=== PATIENT | male | born 1955 | race Caucasian/White ===

== ENCOUNTER 2024-04-29 09:05 | Day surgery (SDC) | payer MEDICARE, BC, SELFPAY ==
[2024-04-20 14:20] VITALS: BMI 31.8
[2024-04-29 09:32] VITALS: BP 144/87; PULSE 96; RESP 18; TEMP 36.2; O2SAT 98
--- NOTE | 2024-04-29 09:44 | EXP.ANES.CKL ---
[facility] Disclaimer: The information contained in this section may have been updated after the patient was seen, as this information can be updated by other users. Medical History History of transient ischemic attack (TIA) Irritable bowel syndrome (IBS) Crohn's disease Atrial fibrillation Surgical History History of surgery History of surgery History of hip replacement Family History Sister Breast cancer Ovarian cancer Social History Smoking Status: Never smoker alcohol intake: never substance use type: denies use current occupational status: retired Travel in the last 8 weeks: Inside the [facility] Anesthesia Checklist Patient Identification Patient Identification: Arm Band and Verbal (Name & ) Structural Data Admitted From: Home Planned Operative Procedure/s: Colonoscopy Consent for Planned Operative Procedure(s) Verified: Yes Verified Documents: Surgical Consent and History and Physical NPO Status Verified Time NPO: 00:00 Additional verifications Anesthesia Reactions: No Airway Assessment Mallampati Score:: Class II C-Spine Mobility Assessed: Yes TMJ Mobility Assessed: Yes Dentition: Good Dentition Neurological Assessment Level of Consciousness: Awake Hx Seizures: No Numbness or tingling in extremities: No Anesthesia Plan Anesthesia Risk discussed: Yes Anesthesia Plan: Verified ASA Class: III Anesthesia Type: MAC
[2024-04-29 10:10] VITALS: O2SAT 98
--- NOTE | 2024-04-29 10:28 | P.HP_ITS ---
History of Present Illness *Admission Date: 04/29/24 *Reason for visit:: Screening *History of present illness: Mr. Pressley is a 69-year-old gentleman who is here for screening colonoscopy. He does have a prior history of Crohn's disease of the terminal ileum. The examination is deemed medically necessary for colonoscopy. The patient has been seen, interviewed and examined prior to the procedure by both myself and the anesthesia provider. [facility] Disclaimer: The information contained in this section may have been updated after the patient was seen, as this information can be updated by other users. Medical History History of transient ischemic attack (TIA) Irritable bowel syndrome (IBS) Crohn's disease Atrial fibrillation Surgical History History of surgery History of surgery History of hip replacement Family History Sister Breast cancer Ovarian cancer Social History (Updated 04/29/24 @ 09:46 by Wong Agustin CRNA) Smoking Status: Never smoker alcohol intake: never substance use type: denies use current occupational status: retired Travel in the last 8 weeks: Inside the [place] Review of Systems Review of Systems Review of systems (narrative): Negative *Cardiovascular Comments: Negative *Gastrointestinal Comments: Negative *Genitourinary Comments: Negative *Musculoskeletal Comments: Negative *Neurologic Comments: Negative Meds Home Medications and Allergies Home Medications ?Medication ?Instructions ?Recorded ?Confirmed ?Type aspirin 81 mg capsule 81 mg PO DAILY 04/20/24 04/20/24 History famotidine 20 mg tablet (Pepcid) 20 mg PO DAILY 04/20/24 04/20/24 History metoprolol tartrate 50 mg tablet 50 mg PO DAILY 04/20/24 04/20/24 History potassium chloride 10 mEq 10 meq PO DAILY 04/20/24 04/20/24 History tablet,extended release rivaroxaban 20 mg tablet (Xarelto) 20 mg PO DAILY 04/20/24 04/29/24 History trospium 20 mg tablet 20 mg PO BID 04/20/24 04/20/24 History rosuvastatin 20 mg tablet 20 mg PO DAILY 04/29/24 04/29/24 History New Prescriptions to Start Prescriptions: Allergies Allergy/AdvReac Type Severity Reaction Status Date / Time amoxicillin Allergy Unknown Verified 04/20/24 13:54 allergy reaction clavulanic acid Allergy Unknown Verified 04/20/24 13:54 [From Augmentin] allergy reaction doxycycline Allergy Nausea Verified 04/20/24 13:54 Exam Data for Last 24 hours Vital signs and Labs for Last 24 Hours: Temp Pulse Resp BP Pulse Ox O2 Del Method O2 Flow Rate 97.1 F L 96 H 18 144/87 H 98 Nasal Cannula 6 04/29/24 09:32 04/29/24 09:32 04/29/24 09:32 04/29/24 09:32 04/29/24 09:32 04/29/24 10:10 04/29/24 10:10 *Routine HEENT Exam Head: Present normocephalic Eye: Present EOMI and PERRL ENT: Present mucous membranes moist *Routine Neck Exam Neck: Present supple *Routine Respiratory Exam Respiratory: Present CTA bilaterally *Routine Cardiovascular Exam Cardiovascular: Present RRR *Routine Abdominal Exam Abdominal: Present soft and normoactive bowel sounds; Absent tenderness *Routine Rectal Exam Rectal:: deferred *Routine Genitalia Exam Genitalia:: deferred *Routine Extremities Exam Extremities: Absent cyanosis, clubbing or edema *Routine Skin Exam Skin: Present warm; Absent rash *Routine Neurological Exam Neurological: Present alert and oriented X3 Assessment and Plan *Assessment and plan (1) Crohn's disease of small intestine in remission: Status: Acute Category: Medical Code(s): K50.00 - Crohn's disease of small intestine without complications (2) Screening for colon cancer: Status: Acute Category: Medical Code(s): Z12.11 - Encounter for screening for malignant neoplasm of colon Plan A/P: 1. Longstanding Crohn's disease of the ileum is the preprocedural diagnosis. The patient will be anesthetized/sedated using MAC sedation. The patient has been seen and examined. Cardiac and lung assessment prior to the examination is stable. Proceed with planned colonoscopy
[2024-04-29 10:49] VITALS: BP 86/49; PULSE 67; RESP 18; TEMP 36.3; O2SAT 94
--- NOTE | 2024-04-29 10:49 | HMH.PROCNOTE ---
[facility] Procedure Note Date: 04/29/24 Time: 10:49 Procedure Note:: Colonoscopy Procedure Report: Colonoscopy with cold biopsies and cold snare polypectomy Endoscopist: Velasquez Hollis II, MD Referring physician: Jagjit Jones MD Date of Procedure: April 29, 2024 Equipment: Olympus 190 variable stiffness pediatric colonoscope Sedation: MAC sedation Indication: Mr. Pressley is a 69-year-old gentleman with longstanding Crohn's disease of the small intestine. He was not on any maintenance of remission therapy for many years and is now on Entyvio. He is doing well with no complaints. He has had recent labs at [facility] which are not presently available. He reports no abdominal pain, weight loss, change in his bowel habits or rectal bleeding. He reports no family history of colon cancer. Procedure: Prior to the procedure, a history and physical exam was performed, and patient's medications and allergies were reviewed. The risks, benefits and alternatives of the sedation and procedure were discussed with the patient. All questions were answered and informed consent was obtained. The patient was brought to the procedure room. Patient identification and proposed procedure were verified by the physician and the nurse. The patient was placed in a left lateral decubitus position and the scope was passed under direct vision. Throughout the procedure, the patient's blood pressure, pulse, and oxygen saturations were monitored continuously. The colonoscopy was accomplished without difficulty. The patient tolerated the procedure well. Findings: On digital rectal examination there was normal rectal tone. There were no external hemorrhoids. The prostate was 2+, smooth, soft, symmetric without nodules. The colonoscope was introduced through the anal canal to the rectum and advanced to the cecum. The ileocecal valve and appendiceal orifice were identified. The scope was advanced approximately 15 to 20 cm into the ileum. There were scattered aphthous ulcerations and aphthous erosions. There was no stricturing or fistulizing disease identified but there was mild mucosal patchy edema/erythema and aphthous ulceration/erosions. Multiple biopsies were obtained. This extended to beyond 15 cm and was certainly more proximal in the ileum as well. The scope was then withdrawn into the colon. There was a single 5 mm polyp in the descending colon removed via cold snare polypectomy. The remainder of the cecum, ascending, transverse, descending, sigmoid and rectum were grossly normal. There were no mucosal abnormalities identified. Upon retroflexion within the rectum there were grade 1-2 internal hemorrhoids.The preparation was excellent throughout with [place] Preparation Score of 9. The cecal time was 10 minutes. Impression: 1. Crohn's ileitis extending to at least 15 cm in ileum (Crohn's disease of the small intestine without obstruction) 2. Diminutive descending colon polyp 3. Grade 1-2 internal hemorrhoids Plan: I will discuss the findings with the patient and family. He has clinically improved with Entyvio but is not in colonoscopic remission. We will decide whether additional or new treatment is warranted and discuss treatment options. I would like to review labs and have the patient follow-up in the office.
[2024-04-29 10:59] VITALS: BP 104/73; PULSE 83; RESP 18; O2SAT 95
[2024-04-29 11:09] VITALS: BP 111/61; PULSE 74; RESP 18; O2SAT 95
[2024-04-29 11:40] VITALS: BP 112/69; PULSE 79; RESP 18; O2SAT 98
== END 2024-04-29 11:40 | disposition home or self-care (01) ==
PROVIDERS: PCP Family Medicine; Visit Provider Internal Medicine Gastroenterology
PROC: (CPT 45385; principal; 2024-04-29 11:00)
DX: K50.00 Crohn's disease of small intestine without complications (principal); D12.4 Benign neoplasm of descending colon; K64.1 Second degree hemorrhoids; Z79.899 Other long term (current) drug therapy
CPT/HCPCS: 45385; 88305; 99221

== ENCOUNTER 2024-07-06 11:39 | Outpatient (CLI) | payer MEDICARE, BC, SELFPAY ==
[2024-07-06 12:37] LABS: Basophils # 0.1 K/mm3 (0-0.2); Basophils % 0.7 % (0.1-2.0); Eosinophils # 0.1 K/mm3 (0.0-0.4); Eosinophils % 0.8 % (0.1-12.0); Hematocrit 40.2 % (42.0-52.0); Hemoglobin 13.4 g/dL (14.1-18.0); Lymphocytes # 2.1 K/mm3 (0.7-4.5); Mean Corpuscular HGB Conc 33.2 g/dL (31.8-35.4); Mean Corpuscular Hemoglobin 29.2 pg (27.0-31.2); Mean Platelet Volume 7.5 fl (7.4-10.4); Monocytes # 0.5 K/mm3 (0.1-1.0); Neutrophils # 4.8 K/mm3 (1.8-7.8); Neutrophils % 63.4 % (37.0-80.0); Platelet Count 287 K/mm3 (142-424); Red Blood Count 4.57 M/mm3 (4.60-6.20); Red Cell Distribution Width 14.6 % (11.5-17.5); White Blood Count 7.6 K/mm3 (4.8-10.8)
[2024-07-06 12:59] LABS: Alanine Aminotransferase 28 U/L (12-78); Albumin/Globulin Ratio 1.6 (1.1-1.8); Alkaline Phosphatase 77 U/L (38-126); Anion Gap 10.4 mEq/L (5-15); Aspartate Amino Transferase 35 U/L (17-59); Bilirubin,Total 0.4 mg/dl (0.2-1.3); Blood Urea Nitrogen 16 mg/dl (9-20); Calcium 9.1 mg/dl (8.4-10.2); Carbon Dioxide 28 mmol/L (22.0-30.0); Chloride 108 mmol/L (98-107); Estimated Glomerular Filt Rate 84 ml/min (>60); GFR (African American) 102 ML/MIN (>60); Globulin 2.5 g/dL (1.3-3.2); Glucose 87 mg/dl (74-100); Potassium 4.4 mmoL/L (3.5-5.1); Sodium 142 mmol/L (136-145); Total Protein,Serum 6.5 g/dl (6.3-8.2)
[2024-07-06 13:05] LABS: C-Reactive Protein 1.8 mg/L (0-4)
[2024-07-06 14:42] LABS: Vitamin B12 > 1000 pg/mL (239-931)
[2024-07-06 16:25] LABS: Iron 56 ug/dL (49-181)
[2024-07-06 16:35] LABS: Total Iron Binding Capacity 431 ug/dL (261-462)
[2024-07-06 17:04] LABS: Ferritin 11.7 ng/ml (17.9-464)
[2024-07-18 20:25] LABS: 1,25 Dihydroxy Vitamin D 58 pg/mL (.); 1,25-Dihydroxy, Vitamin D-2 <10 pg/mL (.); 1,25-Dihydroxy, Vitamin D-3 57 pg/mL (.)
== END 2024-07-06 23:59 | disposition home or self-care (01) ==
LOC: LAB 11:40
PROVIDERS: PCP Family Medicine; Visit Provider Internal Medicine Gastroenterology
DX: K74.69 Other cirrhosis of liver (principal); B19.20 Unspecified viral hepatitis C without hepatic coma; K50.00 Crohn's disease of small intestine without complications
CPT/HCPCS: 36415; 80053; 82607; 82652; 82728; 83540; 83550; 85025; 86140

== ENCOUNTER 2025-04-26 10:54 | Outpatient (CLI) | payer MEDICARE, BC, SELFPAY ==
--- OUTSIDE RECORDS SUMMARY | 2025-03-24 09:30 | XMS_ITS | Encounter Summary ---
Author Organization Healthcare Address [address] [place] [address] Care Team Providers Care Business Banking Officer Name Role Phone Mp Ibarra Primary Care Provider [phone] Reason for Referral * Consultation (Routine) - Authorized Specialty Diagnoses / Procedures Referred By Villa t Referred To Contact Sleep Medicine Diagnoses Nocturia Jinny Hagen APRN, DNP [address] [address] Phone: tel: fax: [facility] [address] [place] [address] Phone: tel: fax: Referral ID Status Reason Start Date Expiration Date Visits Requested Visits Authorized [id number] Authorized Specialty Services Required 03/24/2025 09/23/2026 1 1 Reason for Visit * Reason Comments LUTS Encounter Details Date Type Department Care Team (Late st Contact Info) Description 03/24/2025 9:30 AM EDT [facility] [address] [place] [address] Jinny Hagen APRN, DNP [id number] [place] [address] Lower urinary tract symptoms (LUTS) (Primary Dx); Nocturia Social History Tobacco Use Types Packs/Day Years Used Date Smoking Tobacco: Never Passive Smoke Exposure: Never Smokeless Tobacco: Never Alcohol Use Standard Drinks/Week Comments Never 0 (1 standard drink = 0.6 oz pur e alcohol) PHQ-2 Answer Date Recorded Patient Health Questionnaire-2 Score 0 03/24/2025 PHQ-9 Answer Date Recorded Patient Health Questionnaire-9 Score 0 03/24/2025 PHQ-2A Answer Date Recorded Patient Health Questionnaire-2 Score 0 06/18/2023 Sex and Gender Information Value Date Recorded Sex Assigned at Not on file Legal Sex Male 8:23 PM EDT Gender Identity Not on file Sexual Orientation Not on file documented as of this encounter Last Filed Vital Signs Vital Sign Reading Time Taken Comments Blood Pressure 98/61 03/24/2025 8:24 AM EDT Pulse 64 03/24/2025 8:24 AM EDT Temperature 36.7 C (98 F) 03/24/2025 8:24 AM EDT Respiratory Rate 18 03/24/2025 8:24 AM EDT Oxygen Saturation 97% 03/24/2025 8:24 AM EDT Inhaled Oxygen Concentration - - Weight 93.8 kg (206 lb 12.7 oz) 03/24/2025 8:24 AM EDT Height 182.9 cm (6') 03/24/2025 8:24 AM EDT Body Mass Index 28.05 03/24/2025 8:24 AM EDT documented in this encounter Functional Status * Over the past 2 weeks, how often have you been bothered by any of the following problems? Question Answer Date of Assessment Author Little interest or pleasure in doing things Not at all 03/24/2025 8:20 AM CARLOT Reilly Multani Feeling down, depressed, or hopeless Not at all 03/24/2025 8:20 AM CARLOT Reilly Multani Patient Health Questionnaire -2 Score 0 03/24/2025 8:20 AM CARLOT Reilly Multani * Question Answer Date of Assessment Author Trouble falling or staying asleep, or sleeping too much Not at all 03/24/2025 8:20 AM CARLOT Reilly Multani Feeling tired or having desiree le energy Not at all 03/24/2025 8:20 AM Reilly Davison Poor appetite or overeating Not at all 03/24/2025 8: 20 AM Reilly Davison Feeling bad about yourself - or that you are a failure or have let yourself or your family down Not at all 03/24/2025 8:20 AM Reilly Franks Trouble concentrating on thi ngs, such as reading the newspaper or watching television Not at all 03/24/2025 8:20 AM Reilly Davison Moving or speaking so slowly that other people could have noticed? Or the opposite - being so fidgety or restless that you have been moving around a lot more than usual. Not at all 03/24/2025 8:20 AM Reilly Davison Thoughts that you would be b canelo off or hurting yourself in some way Not at all 03/24/2025 8:20 AM Reilly Davison Patient Health Questionnaire -9 Score 0 03/24/2025 8:20 AM Reilly Davison documented as of this encounter Miscellaneous Notes * Progress Notes - Jinny Hagen, RADIO REPAIRER, DNP - 03/24/2025 9:30 AM EDT [facility] Visit CC: LUTS HPI: Aneesh Pressley is a 69 y.o. male with history of left ureteral stone s/p ureteroscopy (2019), stable 6 mm left renal nodule, and bothersome LUTS. He has previously sed tamsulosin and finasteride for his LUTS. More recently, he has been using trospium 20 mg BID. Aneesh presents today in follow up. He is most bothered by nocturia. He stops fluids around 7 pm with bedtime around 9-10 pm. Drinking sweet tea, soda, water throughout the day. He has never been evaluated for sleep apnea. Does not think he snores. Does not feel well rested in the mornings. Sleeps on back, but when turns to the side feels sensation to void. Feels volumes when voiding during the night are mid range. Stream is decent, but slower. No straining to void. No GH, dysuria, or UTI's. Previously stopped tamsulosin and finasteride but unclear why he stopped these. International Prostate Symptom Score (IPSS): Incomplete Emptying 0 Frequency 1 Intermittency 2 Urgency 0 Weak Stream 4 Straining 0 Nocturia 4 Total IPSS score 11 Moderate symptoms (8-19) QOL 3 (mixed) Past Medical History: Past Medical History[1] Past Surgical History: Surgical History[2] Family History: Family History[3] Social History: Social History[4] Physical Exam: Visit Vitals BP 98/61 Pulse 64 Temp 36.7 ??C (98 ??F) (Oral) Resp 18 Ht 1.829 m (6') Wt 93.8 kg (206 lb 12.7 oz) SpO2 97% BMI 28.05 kg/m?? Smoking Status Never BSA 2.18 m?? General: Alert, in no acute distress, well appearing. Pulmonary: No increased work of breathing or signs of respiratory distress. Gastrointestinal: Abdomen non distended. Musculoskeletal: Normal ROM of UEs. Normal gait and station. Skin: Warm, dry, and intact. No obvious rashes/open sores. Neurologic: CN 2-12 grossly intact. Psychiatric: oriented to person, place, and time. Mood and affect appeared normal. Hematologic/Lymphatic/Immunologic: No obvious bruises or sites of spontaneous bleeding. Results: Urine, Volume Date Value Ref Range Status 03/24/2025 0 mL Final Assessment: 69 y.o. male with bothersome LUTS on trospium 20 mg BID which has been helpful. Today LUTS are morebothersome, with most bothersome symptom being nocturia. Nocturia is a source of significant bother for some patients. It is one of the most distressing symptoms in older m?n with BPH and is strongly associated with poor ckojyyc-xt-zmbm ratings. The prevalence of ???t?ri? increases with increasing age due to several factors-- the body produces less of the hormone that helps concentrate urine, the bladder changes with age making it less able to hold urine, the body's circadian rhythm changes with age causing more urine to be produced at night. Other factors that can contribute to nocturia include: Drinking too much fluid before bed, especially beverages with alcohol or caffeine; taking medications that contain a diuretic; conditions that cause marcellus a, such as congestive cardiac failure or renal disease; obstructive sleep apnea. Behavioral modifications to help decrease nocturia: - Reduction of fluid intake after the last meal of the day - Treatment of peripheral ?dem? by use of compression stockings or afternoon elevation of the legs - Double-voiding prior to bedtime Recommend he resume tamsulosin 0.[address] also [address] consult for sleep study. Follow up in 3 months with IPSS, PVR. He is not inclined to have any surgical intervention. Plan: - Continue trospium 20 mg BID. - Resume tamsulosin 0.4 mg daily. - Sleep clinic referral placed. - Follow up in 3 months with IPSS, PVR. 30 minutes were spent today on review of patient's medical history, obtaining history, exam, reviewof any relevant results, and discussion of pathophysiology with appropriate plan with counseling given to patient. [1] Past Medical History: Diagnosis Date Acute Crohn's disease (CMS/HCC) Arrhythmia Aphib 2 years ago Atrial fibrillation (CMS/HCC) Take xarelto Calculus of kidney Kidney stone on left side Colon polyp removed by Dr. 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 Personal history of other diseases of the digestive system History of Crohn's disease S/P patent foramen ovale closure 10/23/2022 Shortness of breath when exercising Stroke (CMS/HCC) 2 TIA 2008 last one TIA (transient ischemic attack) 2 of them, in early 30's and late 40's Transient cerebral ischemic attack, unspecified TIA (transient ischemic attack) [2] Past Surgical History: Procedure Laterality Date COLONOSCOPY KIDNEY STONE SURGERY NO PAST SURGERIES broke nose in ' NOSE SURGERY fx OTHER SURGICAL HISTORY septal occluder SPINAL CORD STIMULATOR IMPLANT [employer] TOTAL HIP ARTHROPLASTY Left 11/17/2023 anterior approach [3] Family History Problem Relation Name Age of Onset Stroke Mother Melany Pressley Stroke Father Aneesh Pressley Cancer Sister Olivia Pressley Other cancer Other Anesthesia problems Neg Hx Malig Hyperthermia Neg Hx [4] Social History Tobacco Use Smoking status: Never Passive exposure: Never Smokeless tobacco: Never Vaping Use Vaping status: Never Used Substance Use Topics Alcohol use: Never Drug use: Never documented in this encounter Plan of Treatment Upcoming Encounters Date Type Department Care Team (Late st Contact Info) Description 06/08/2025 10:20 AM EST Office Visit [facility] [address] [place] [address] Gale Amezcua MD [address] [facility] [address] [place] [address] 06/22/2025 1:10 PM EST [facility] [address] [place] [address] Jinny Hagen APRN, DNP [address] [place] [address] Scheduled Referrals Name Type Priority Associated Diagnoses Order Schedule Ambulatory referral to Adult Sleep Medicine Outpatient Referral Routine Nocturia Expected: 03/24/2025 (Approximate), Expires: 09/25/2026 documented as of this encounter Procedures Procedure Name Priority Date/Time Associated Diagnosis Comments POC US BLADDER SCAN FOR VOLUME Routine 03/24/2025 8:34 AM EDT Lower urinary tract symptoms (LUTS) documented in this encounter Results * POC US Bladder Volume (03/24/2025 8:34 AM EDT) Urine, Volume 0 mL IMAGING Anatomical Region Laterality Modality Other us Jinny Hagen APRN, DNP IMG POINT OF CARE ULTRA SOUND Final Result documented in this encounter Visit Diagnoses Diagnosis Lower urinary tract symptoms (LUTS)- Primary Nocturia documented in this encounter Additional Health Concerns Assessment Noted Time PHQ-9 Depression Total Score: 0 03/24/20 25 8:20 AM EDT A fall risk assessment has been complete d for the patient 03/24/2025 8:20 AM EDT A Body Mass Index follow-up plan has been documented for the patient 03/24/2025 12:04 PM EDT documented as of this encounter Care Teams Business Banking Officer Relationship Specialty Start Date End Date Mp Ibarra DO [address] [place] [address] [address] [place] [address] PCP - General Electrical Design Engineer 03/24/25 documented as of this encounter
--- OUTSIDE RECORDS SUMMARY | 2025-04-25 12:00 | XMS_ITS | Encounter Summary ---
Author Organization [employer] ([place], [place], [place], [place]) Address [address] [place] [address] Care Team Providers Care Geothermal Operations Engineer Name Role Phone Mp Ibarra DO Primary Care Provider [phone] Reason for Visit * Reason Comments Abdominal Pain Patient complaining of stomach pain possible chron's attack with nausea with lower abdominal pain Encounter Details Date Type Department Care Team (Late st Contact Info) Description 04/25/2025 12:00 PM EDT Office Visit [facility] [address] [place] [address] [place] [phone] [place] [address] [place] [address], [address] [phone] Crohn's disease of colon with other complication (HCC) (Primary Dx); Dark stools; Nausea; Lower abdominal pain; Essential hypertension; Dyspnea on exertion Social History Tobacco Use Types Packs/Day Years Used Date Smoking Tobacco: Never Assessed [facility] - Mental Health Answer Date Recorde d Little interest or pleasure in doing things Not at all 01/20/2025 Feeling down, depressed, or hopeless Not at all 01/20/2025 Feeling of Stress Not on file 01/20/2025 Sex and Gender Information Value Date Recorded Sex Assigned at Male 01/29/2022 11:18 AM CDT Legal Sex Male 11:18 AM CDT Gender Identity Male 01/29/2022 11:18 AM CDT Sexual Orientation Not on file documented as of this encounter Last Filed Vital Signs Vital Sign Reading Time Taken Comments Blood Pressure 153/78 04/25/2025 11:12 AM EDT Pulse 70 04/25/2025 11:08 AM EDT Temperature 36.2 C (97.1 F) 04/25/2025 11:08 AM EDT Respiratory Rate 18 04/25/2025 11:08 AM EDT Oxygen Saturation 98% 04/25/2025 11:08 AM EDT Inhaled Oxygen Concentration - - Weight 95.7 kg (211 lb) 04/25/2025 11:08 AM EDT Height 182.9 cm (6') 04/25/2025 11:08 AM EDT Body Mass Index 28.62 04/25/2025 11:08 AM EDT documented in this encounter Progress Notes * Mp Ibarra, DO - 04/25/2025 12:00 PM EDT Subjective: Aneesh Pressley is a 70 y.o. male. Chief Complaint Patient presents with Abdominal Pain Patient complaining of stomach pain possible chron's attack with nausea with lower abdominal pain The patient is coming in for concerns of worsening Crohn's disease. He reports that over the past few months, he has been having more frequent lower abdominal pain/discomfort that seems to come and go. He reports that previous symptoms for his Crohn's disease were primarily stool urgency and diarrhea. As reminder, he is established with a private claim adjuster for management of his condition. The reason he is coming in today is he had significant abdominal pain that lasted for a few minutes after walking up the stairs yesterday which was more severe than it has been in the past. He has not been having any diarrhea or overt bloody stools, but he does endorse having frequent dark stools.He attributes this to his iron therapy. During the course of the visit, the patient also admitted to worsening functionality including dyspnea on exertion. He has to take his time going up stairs due to it exacerbating his symptoms. The patient does have a inspecting and testing lead hand through [facility], but he is unclear about when he is next due to visit them. He believes that he is already scheduled in the future with them, although I am unableto see an appointment in the [facility] system. Outpatient Medications Prior to Visit Medication Sig Dispense Refill ascorbic acid (vitamin C with xiomara hips) 500 MG tablet Take 1 tablet (500 mg total) by mouth daily. aspirin 81 mg tab Take 1 tablet (81 mg total) by mouth daily. BERBERINE CHLORIDE ORAL Take by mouth. BETAINE ORAL Take by mouth. cholecalciferol, vitamin D3, (D3-5000 ORAL) Take 5,000 mLs by mouth daily. CHRYSIN, BULK, MISC 500 mg daily. coenzyme Q10 100 mg capsule Take 1 capsule (100 mg total) by mouth daily. ferrous sulfate 325 (65 FE) MG EC tablet Take 1 tablet (325 mg total) by mouth 3 (three) times daily with meals. GOTU CARLA HERB ORAL Take by mouth. hydroxocobalamin/cobamamide (ADENO-HYDROXO B12 ORAL) Take by mouth. lactobacillus acidophilus (BACID) 1 billion cell- 250 mg tab per tablet Take 1 capsule by mouth daily. levOCARNitine (CARNITOR) 500 mg tab Take 1 tablet (500 mg total) by mouth daily. LYSINE ORAL Take by mouth. metoprolol tartrate (LOPRESSOR) 50 MG tablet Take 1 tablet (50 mg total) by mouth 2 (two) times daily. omega 9-nxg-iiz-fish oil capsule Take 1 capsule (1,000 mg total) by mouth daily. pine bark/coQ10/vit A/herb 155 (PYCNOGENOL COMPLEX ORAL) Take by mouth. pomegran sd/pomegran fruit xt (POMEGRANATE ORAL) Take by mouth. potassium chloride (KLOR-CON) 10 MEQ CR tablet Take 1 tablet (10 mEq total) by mouth daily. psyllium (METAMUCIL) powder Take 1 packet by mouth 3 (three) times daily. risankizumab-rzaa (SKYRIZI SUBQ) Inject under the skin. rivaroxaban (XARELTO) 20 mg tablet Take 1 tablet (20 mg total) by mouth daily with breakfast. rosuvastatin (CRESTOR) 20 MG tablet Take 1 tablet (20 mg total) by mouth daily Patient has stopped and been told to stay off for 6 month . sennosides-docusate sodium 8.6-50 mg per tablet Take 1 tablet by mouth 2 (two) times daily. tamsulosin (FLOMAX) 0.4 mg cap 24 hr capsule Take 1 capsule (0.4 mg total) by mouth daily. trospium (SANCTURA) 20 mg tablet Take 1 tablet (20 mg total) by mouth 2 (two) times daily. xrcj-qevh-wel-eue-ljh-ylqf-hor 338-179-680-125 mg tab Take by mouth. vibrating device, constipation (VIBRANT ORAL) Take by mouth. No facility-administered medications prior to visit. Review of Systems Constitutional: Negative for chills and fever. HENT: Negative. Respiratory: Negative for cough, shortness of breath and wheezing. Cardiovascular: Negative for chest pain. Gastrointestinal: Positive for abdominal pain and nausea. Negative for diarrhea and vomiting. Neurological: Positive for dizziness. All other systems reviewed and are negative. No past medical history on file. No past surgical history on file. No family history on file. Social History: Objective: BP (!) 153/78 Pulse 70 Temp 97.1 ??F (36.2 ??C) (Skin) Resp 18 Ht 1.829 m (6') Wt 95.7 kg(211 lb) SpO2 98% BMI 28.62 kg/m?? Vision and Hearing: No results found. Physical Exam Vitals reviewed. Constitutional: General: He is not in acute distress. Appearance: Normal appearance. HENT: Head: Normocephalic. Right Ear: External ear normal. Left Ear: External ear normal. Nose: Nose normal. Eyes: Extraocular Movements: Extraocular movements intact. Conjunctiva/sclera: Conjunctivae normal. Pupils: Pupils are equal, round, and reactive to light. Cardiovascular: Rate and Rhythm: Normal rate and regular rhythm. Pulmonary: Effort: Pulmonary effort is normal. No respiratory distress. Breath sounds: Normal breath sounds. No wheezing, rhonchi or rales. Abdominal: General: Abdomen is flat. Bowel sounds are normal. There is no distension. Tenderness: There is no abdominal tenderness. There is no guarding or rebound. Musculoskeletal: Cervical back: Normal range of motion. Skin: Coloration: Skin is not pale. Findings: No erythema or rash. Neurological: Mental Status: He is alert and oriented to person, place, and time. Mental status is at baseline. Psychiatric: Mood and Affect: Mood normal. Behavior: Behavior normal. Thought Content: Thought content normal. Judgment: Judgment normal. No results found for: CBCDIF , [id number] , LIPIDS , LABA1C , TSH Radiology Results (last 7 days) No results found for the last 168 hours. Assessment: 1. Crohn's disease of colon with other complication (HCC) 2. Dark stools 3. Nausea 4. Lower abdominal pain 5. Essential hypertension 6. Dyspnea on exertion Discussion and Summary: Multiple topics were addressed at today's visit. CROHN'S DISEASE No red flag findings on physical exam for any acute abnormalities. The patient states that he is currently asymptomatic. To that end, I think it is reasonable to hold off on budesonide therapy. However, I do recommend that the patient reach out to his claim adjuster to make an appointment MELISSA considering that the symptoms are progressing. Since he sees a private claim adjuster, I urged the patient to have his claim adjuster send their progress note from their next visit so I can stay up to date. DYSPNEA ON EXERTION EKG was performed in office which showed normal sinus rhythm. I do not see a scheduled follow-up with cardiology through the EMR. I recommended that the patient reach out to his inspecting and testing lead hand and verify if he has an upcoming appointment with them. If any worsening symptoms, go to ED. ESSENTIAL HYPERTENSION Blood pressure is notably elevated in office. The patient does endorse taking his medications today. As such, I want to start losartan 50 mg. Discussed benefits/risk/side effects. We will plan to seethe patient back in 2 weeks to reassess his blood pressure and to review the status of his specialist appointments. Plan: Discontinued Medications No medications on file New Prescriptions LOSARTAN (COZAAR) 50 MG TABLET Take 1 tablet (50 mg total) by mouth daily. Modified Medications No medications on file Orders Placed This Encounter Procedures ECG 12 lead Standing Status: Future Number of Occurrences: 1 Expected Date: 04/25/2025 Expiration Date: 05/25/2025 Reason for ECG:: Palpitations Return in about 2 weeks (around 05/09/2025) for hypertension, discuss cardiology and GI appointments. This note was partially written using the assistance of Dragon dictation. While an effort to proofread the note has been performed, dictation errors may still be present. Mp Ibarra DO Primary Care Physician [address], [address] [place] [address] 04/25/2025 11:11 AM documented in this encounter Plan of Treatment Upcoming Encounters Date Type Department Care Team (Kedar st Contact Info) Description 05/10/2025 9:45 AM EDT Office Visit [facility] [address] [place] [address] [place] [phone] Mp Ibarra DO [address] [address] [place] [phone] 07/19/2025 10:30 AM EST Office Visit [facility] Care [address] [place] [address] [place] [phone] Mp Ibarra DO [address] [address] [place] [address] Scheduled Orders Name Type Priority Associated Diagnoses Orde r Schedule ECG 12 lead ECG Routine Dyspnea on exertion Expected: 04/25/2025, Expires: 05/25/2025 documented as of this encounter Visit Diagnoses Diagnosis Crohn's disease of colon with other complication (HCC)- Primary Dark stools Nonspecific abnormal finding in stool contents Nausea Nausea alone Lower abdominal pain Abdominal pain, other specified site Essential hypertension Unspecified essential hypertension Dyspnea on exertion Other dyspnea and respiratory abnormality documented in this encounter Care Teams Geothermal Operations Engineer Relationship Specialty Start Date End Date Mp Ibarra DO [address] [address] [address] [place] [address] PCP - General Family Medicine 12/16/24 documented as of this encounter
--- OUTSIDE RECORDS SUMMARY | 2025-04-26 10:58 | XMS_ITS | Clinical Summary ---
Author Organization [facility] Address [address] [place] [address] Care Team Providers Care Insulation Engineman Name Role Phone StaceyMp Primary Care Provider [phone] Allergies Active Allergy Reactions Criticality Noted Date Comments Amoxicillin Unknown (See Comments) Low 04/18/2020 Pt can't remember due to reaction being so long ago Amoxicillin-Pot Clavulanate Nausea Only Low 02/02/2021 Doxycycline Hyclate GI Intolerance Low 02/20/2016 Medications aspirin 81 MG tablet Take 1 tablet by mouth Every Other Day. Pt last dose 05/07/23 for the upcoming procedure Active potassium chloride (K-DUR) 10 MEQ CR tablet Take 1 tablet by mouth Every Other Day. 8 Active Psyllium (Konsyl Daily Fiber) 100 % powder Daily. Active NON FORMULARY / PATIENT SUPPLIED MEDICATION 2 tablets Daily. HYDRO-EYE SUPPLEMENT Active NON FORMULARY 1 tablet. MARSHMALLOW ROOT 480 MG Active Turmeric 1053 MG tablet Take 1 capsule by mouth Daily. Active Betaine HCl 300 MG tablet Take 1 tablet by mouth Daily. Active vitamin C (ASCORBIC ACID) 250 MG tablet Take 4 tablets by mouth Daily. WITH ESTRELLITA-HIP Active Bacillus Coagulans-Inuli n (Probiotic) 1-250 BILLION-MG capsule Take by mouth Daily. Active NON FORMULARY / PATIENT SUPPLIED MEDICATION 6 each. AUTOLOGOUS SERUM DROPS FOR EYES Active MOLYBDENUM PO Take 500 mcg by mouth Daily. Active lysine 500 MG tablet Take 1 tablet by mouth Daily. Active NON FORMULARY Magnesium oil every other day Active metoprolol tartrate (LOPRESSOR) 50 MG tablet Take 1 tablet by mouth Daily. 2 Active Rea 3-6-9 Fatty Acids (Rea-3 Fusion) liquid Take 1,600 mg by mouth Daily. Active zinc sulfate (ZINCATE) 220 (50 Zn) MG capsule Take 1 capsule by mouth Daily. Active Skyrizi 600 MG/10ML solution Every 2 (Two) Months. Injection 2 Active levOCARNitine L-Tartrate 500 MG capsule Take 2 capsules by mouth Daily. Active NON FORMULARY Hydroxo B12 with Folinic Acid 2 caps in the morning Active Pomegranate, Punica granatum, (POMEGRANATE PO) Take 1 capsule by mouth Daily. Active NON FORMULARY P5P 50 1 cap daily Active NON FORMULARY Cordyceps 1 cap daily Active POTASSIUM CITRATE ER PO Take 200 mg by mouth Every Other Day. Active NON FORMULARY Annatto-E 150mg daily Active NON FORMULARY Berbine 500mg daily Active Cholecalciferol (Vitamin D-3) 125 MCG (5000 UT) tablet Take by mouth Daily. Active NON FORMULARY Pycnegenol 100mg daily Active NON FORMULARY Super K one capsule daily Active NON FORMULARY Vibrant mind supplement once daily Active NON FORMULARY Gotu Kishor 950mg daily Active NON FORMULARY Trace mineral oil 2-3 drops daily Active Xarelto 20 MG tablet Take 1 tablet by mouth Daily With Dinner. 4 Active rosuvastatin (CRESTOR) 20 MG tablet Take 1 tablet by mouth Every Night. Active ferrous sulfate 324 (65 Fe) MG tablet delayed-release EC tablet Take 1 tablet by mouth 2 (Two) Times a Day With Meals. Active senna 8.6 MG tablet Take 1 tablet by mouth Every Night. Active Rea-3 1000 MG capsule Take 1 capsule by mouth Daily. Active Probiotic Product (Leeanne-Bid Probiotic) tablet tablet Take 1 tablet by mouth Daily. Active Active Problems Problem Noted Date Diagnosed Date Shortness of breath 10/21/2024 Dyspnea on exertion 10/21/2024 Physical deconditioning 04/17/2023 Chronic anticoagulation 04/17/2023 Primary osteoarthritis of left hip 01/07/2023 Spondylosis of lumbar region without myelopathy or radiculopathy 03/09/2021 Spondylolisthesis, lumbar region 03/09/2021 BMI 29.0-29.9,adult 03/09/2021 Degeneration of lumbar or lumbosacral interverte bral disc 05/22/2018 Lumbar stenosis with neurogenic claudication Mechanical back pain 05/22/2018 Bilateral impacted cerumen 05/04/2018 Crohn's disease of small intestine 04/04/2016 Functional diarrhea 04/04/2016 Transient cerebral ischemia 02/20/2016 Transient visual loss 02/20/2016 Intestinal obstruction due t o Crohn's disease of small intestine 09/26/2015 Allergic rhinitis 07/18/2015 Family History Medical History Relation Name Comments Heart attack Father Aneesh Stroke Father Aneesh COPD Maternal Aunt Mona Renteria she smoke d Breast cancer Sister Olivia Pressley Cancer Sister Olivia Pressley Breast & ovaria n cance Relation Name Status Comments Father Aneesh Maternal Aunt Mona Renteria Mother Sister Olivia Pressley Social History Tobacco Use Types Packs/Day Years Used Date Smoking Tobacco: Never Smokeless Tobacco: Never Tobacco Cessation:Counseling Given: Not Answered Alcohol Use Standard Drinks/Week Comments No 0 (1 standard drink = 0.6 oz pur e alcohol) AUDIT-C Answer Date Recorded Q1: How often do you have a drink containing alcohol? Never 10/29/2024 Q2: How many drinks containi ng alcohol do you have on a typical day when you are drinking? Patient does not drink Q3: How often do you have si x or more drinks on one occasion? Never 10/29/2024 PHQ-2 Answer Date Recorded Retired PHQ-9: Brief Depression Severity Measure Score 7 04/17/2023 Abuse Screen Answer Date Recorded Feels Unsafe at Home or Work/School no 10/29/2024 Feels Threatened by Someone no 10/03 Does Anyone Try to Keep You From Having Contact with Others or Doing Things Outside Your Home? no 10/29/2024 Physical Signs of Abuse Present no 10/29/2024 Housing Stability Answer Date Recorded Current Living Arrangements home 10/03 Potentially Unsafe Housing Conditions Not on jonh e 10/29/2024 Disabilities Answer Date Recorded Difficulty Concentrating, Remembering or Making Decisions no 10/29/2024 Difficulty Managing Errands Independently no 10/29/2024 Education Answer Date Recorded Help with school or training? Not on file Preferred Language South Korean 05/07/2023 PHQ-2 Answer Date Recorded Patient Health Questionnaire-2 Score 0 01/05/2025 Sex and Gender Information Value Date Recorded Sex Assigned at Male 12/29/2024 9:57 AM EDT Legal Sex Male 3:20 PM EDT Gender Identity Not on file Sexual Orientation Straight 12/29/2024 9: 57 AM EDT Last Filed Vital Signs Vital Sign Reading Time Taken Comments Blood Pressure 101/68 10/29/2024 1:20 PM EDT post ambulation Pulse 87 10/29/2024 1:20 PM EDT Temperature 36.5 C (97.7 F) 10/29/2024 9:15 AM EDT Respiratory Rate 16 10/29/2024 11:0 8 AM EDT Oxygen Saturation 93% 10/29/2024 1:2 0 PM EDT Inhaled Oxygen Concentration - - Weight 93.4 kg (206 lb) 01/05/2025 8:34 AM EDT Height 180.3 cm (5' 11 ) 01/05/2025 8:3 4 AM EDT Body Mass Index 28.73 01/05/2025 8:34 AM EDT Plan of Treatment Upcoming Encounters Date Type Department Care Team (Late st Contact Info) Description 05/03/2025 11:30 AM EDT Office Visit [facility] [address] [phone] Nichole Marquez, HISTORY PROFESSOR [address] [address] Health Maintenance Due Date Last Done Comments TDAP/TD VACCINES (1 - Tdap) 1975 COLOGUARD 2001 COLON CANCER SCREENING 5 YEA R SIGMOIDOSCOPY 2001 COLONOSCOPY [address]CER SCREENING 2001 CT COLONOGRAPHY 2001 FECAL OCCULT BLOOD TEST 2001 FIT Testing (1 year) 2001 Pneumococcal Vaccine 50+ (1 of 1 - PCV) 2006 ZOSTER VACCINE (1 of 2) 2006 ANNUAL WELLNESS VISIT 05/22/2018 INFLUENZA VACCINE 03/04/2025 COVID-19 Vaccine (3 - season) 2025, 10/25/2020 HEPATITIS C SCREENING Completed 12/16/2024 , 01/20/2024, 04/22/2022 Medical Devices Implanted Type Area Returned Goods Repairer Device Identifier Shelf Expiration Date Model / Serial / Lot Amplatzer Occluder Implant Description:Implanted [address] 50cm - [id number] Implanted:Qty: 1 on 05/12/2023 by Brent Hartmann MD at [facility] Implant N/A: Back [employer] 01/11/2025 [id number] / / [id number] Ld Stim Lnr St 50cm - [id number] Implanted:Qty: 1 on 05/12/2023 by Brent Hartmann MD at [facility] Implant N/A: Back [employer] 01/11/2025 [id number] / / [id number] Kt Ipg Wavewriter Alpha 16/Contct - [id number] Implanted:Qty: 1 on 05/12/2023 by Brent Hartmann MD at [facility] Implant N/A: Back [employer] 02/05/2025 [id number] / / [id number] Anchr Ld Scs Clikx Ea/St/2 - [id number] Implanted:Qty: 1 on 05/12/2023 by Brent Hartmann MD at [facility] Implant N/A: Back [employer] 01/07/2024 [id number] / / [id number] Insurance [facility] MEDICARE A & B Care Teams Insulation Engineman Relationship Specialty Start Date End Date Mp Ibarra DO [address] [place] [address] PCP - General Internal Medicine 01/05/25
--- OUTSIDE RECORDS SUMMARY | 2025-04-26 10:58 | XMS_ITS | Clinical Summary ---
Author Organization [employer] ([place], [place], [place], [place]) Address [address] [place] [address] Care Team Providers Care Legal Job Titles Name Role Phone Mp Ibarra DO Primary Care Provider [phone] Allergies Active Allergy Reactions Criticality Noted Date Comments Amoxicillin-Pot Clavulanate Nausea Only Low 021 Doxycycline Nausea And Vomiting,Hives,Nausea Only High 03/28/2015 Doryx Medications aspirin 81 mg tab Take 1 tablet (81 mg total) by mouth daily. Active rivaroxaban (XARELTO) 20 mg tablet Take 1 tablet (20 mg total) by mouth daily with breakfast. Active metoprolol tartrate (LOPRESSOR) 50 MG tablet Take 1 tablet (50 mg total) by mouth 2 (two) times daily. Active rosuvastatin (CRESTOR) 20 MG tablet Take 1 tablet (20 mg total) by mouth daily Patient has stopped and been told to stay off for 6 month . Active cholecalciferol, vitamin D3, (D3-5000 ORAL) Take 5,000 mLs by mouth daily. Active levOCARNitine (CARNITOR) 500 mg tab Take 1 tablet (500 mg total) by mouth daily. Active sennosides-docusa te sodium 8.6-50 mg per tablet Take 1 tablet by mouth 2 (two) times daily. Active ferrous sulfate 325 (65 FE) MG EC tablet Take 1 tablet (325 mg total) by mouth 3 (three) times daily with meals. Active coenzyme Q10 100 mg capsule Take 1 capsule (100 mg total) by mouth daily. Active CHRYSIN, BULK, MISC 500 mg daily. Active trospium (SANCTURA) 20 mg tablet Take 1 tablet (20 mg total) by mouth 2 (two) times daily. Active pine bark/coQ10/vit A/herb 155 (PYCNOGENOL COMPLEX ORAL) Take by mouth. Active GOTU CARLA HERB ORAL Take by mouth. Active vibrating device, constipation (VIBRANT ORAL) Take by mouth. Active LYSINE ORAL Take by mouth. Active pomegran sd/pomegran fruit xt (POMEGRANATE ORAL) Take by mouth. Active hydroxocobalamin/ cobamamide (ADENO-HYDROXO B12 ORAL) Take by mouth. Active psyllium (METAMUCIL) powder Take 1 packet by mouth 3 (three) times daily. Active lactobacillus acidophilus (BACID) 1 billion cell- 250 mg tab per tablet Take 1 capsule by mouth daily. Active omega 3-zoj-osd-fish oil capsule Take 1 capsule (1,000 mg total) by mouth daily. Active ascorbic acid (vitamin C with xiomara hips) 500 MG tablet Take 1 tablet (500 mg total) by mouth daily. Active BETAINE ORAL Take by mouth. Active jjzr-odjw-rfw-yuc -dnr-iljm-sjp [phone] mg tab Take by mouth. Active potassium chloride (KLOR-CON) 10 MEQ CR tablet Take 1 tablet (10 mEq total) by mouth daily. Active BERBERINE CHLORIDE ORAL Take by mouth. Active risankizumab-rzaa (SKYRIZI SUBQ) Inject under the skin. Active tamsulosin (FLOMAX) 0.4 mg cap 24 hr capsule Take 1 capsule (0.4 mg total) by mouth daily. Active losartan (COZAAR) 50 MG tabletIndications :Essential hypertension Take 1 tablet (50 mg total) by mouth daily. 90 tablet 3 Active Active Problems Problem Noted Date Diagnosed Date Crohn's disease 12/16/2024 Essential hypertension 12/16/2024 Spinal stenosis of lumbar re gion with neurogenic claudication 12/16/2024 Aneurysm of ascending aorta without rupture 12/02 Atrial fibrillation 12/16/2024 Hyperlipidemia 12/16/2024 History of nephrolithiasis 12/16/2024 Encounters Date Type Department Care Team Description 04/26/2025 Telephone [facility] [address] [place] [phone] Mp Ibarra DO Medication Problem 04/25/2025 12:00 PM EDT Office Visit [facility] [address] [place] [phone] Mp Ibarra DO Crohn's disease of colon with other complication (HCC) (Primary Dx); Dark stools; Nausea; Lower abdominal pain; Essential hypertension; Dyspnea on exertion from Last 3 Months Social History Tobacco Use Types Packs/Day Years Used Date Smoking Tobacco: Never Assessed [facility] - Mental Health Answer Date Recorde [...] AM CDT Sexual Orientation Not on file Last Filed Vital Signs Vital Sign Reading [...] Mass Index 28.62 04/25/2025 11:08 AM EDT Plan of Treatment Upcoming Encounters Date Type Department Care Team (Late st Contact Info) Description 05/10/2025 9:45 AM EDT Office Visit [facility] Care [address] [place] [address] [place] [phone] Mp Ibarra DO [address] [place] [address], [address] [address] 07/19/2025 10:30 AM EST Office Visit [facility] [address] [facility] [address] [place] [address] [place] [address] [place] [address], [address] [place] [address] Health Maintenance Due Date Last Done Comments CT Colonography 1956 FOBT/FIT 1956 Fit-DNA (Cologuard) 1956 Sigmoidoscopy 1956 Tobacco Cessation Counseling and Screening (12+) 1968 DTAP/TDAP/TD VACCINES (1 - Tdap) 1975 Pneumococcal 50+ years (1 of 1 - PCV) 2006 Shingles Vaccine (Zoster) (1 of 2) 2006 COVID-19 VACCINE (3 - season) 2025, 10/25/2020 Influenza Vaccine (#1) 2025 Depression Screening (12+) 01/20/2026 01/20/2025 Medicare Subsequent Wellness (year 3+) 01/20/2026 Colonoscopy 09/04/2026 09/04/2023 Colorectal Cancer Screening 09/04/2026 Respiratory Syncytial Virus (RSV) Adult or (1 - 1-dose 75+ series) 2031 Hepatitis C Screening Completed 12/16/2024 Falls Risk Screening Completed 01/20/2025 Procedures Procedure Name Priority Date/Time Associated Diagnosis Comments HEPATITIS C ANTIBODY Routine 12/16/2024 8:50 AM EDT Encounter for hepatitis C screening test for low risk patient from Last 3 Months or Most Recently Relevant to Health Maintenance Results * Hepatitis C antibody (12/16/2024 8:50 AM EDT) Hep C Virus Ab Non Reactive Non Reactive [facility] Comment: HCV antibody alone does not differentiate between previously resolved infection and active infection. Equivocal and Reactive HCV antibody results should be followed up with an HCV RNA test to support the diagnosis of active HCV infection. Blood 12/16/2024 8:50 AM EDT 12/16/2024 Narrative [facility] - 12/17/2024 5:06 AM EDT Performed at: 01 - [facility] [address] [id number] Data Warehouse Administrator: Neptali Escobar PhD, Phone: [phone] us Mp Ibarra DO LAB BLOOD ORDERABLES Final Resul t [facility] from Last 3 Months or Most Recently Relevant to Health Maintenance Insurance MEDICARE PART [place] [address] CROSS/BLUE SHIELD Care Teams Legal Job Titles Relationship Specialty Start Date End Date Mp Ibarra DO [address], [address] [address] PCP - General Family Medicine 12/16/24
--- OUTSIDE RECORDS SUMMARY | 2025-04-26 10:58 | XMS_ITS | Encounter Summary ---
Author Organization Healthcare Address [address] [place] [address] Care Team Providers Care Director Of Vendor Management Name Role Phone Mp Ibarra DO Primary Care Provider [phone] Reason for Visit * Reason Comments Med Refill Encounter Details Date Type Department Care Team (Late st Contact Info) Description 03/25/2025 Refill [facility] [address] [place] [address] Jabier Littlejohn MD [address] [place] [address] Social History Tobacco Use Types Packs/Day Years [...] on file documented as of this encounter Plan of Treatment Upcoming Encounters Date Type Department Care Team (Late st Contact Info) Description 06/08/2025 10:20 AM EST Office Visit [facility] [address] [place] [address] Gale Amezcua MD [address] [facility] [address] [place] [address] 06/22/2025 1:10 PM EST Office Visit [facility] [address] [place] [address] Jinny Hagen, AGER TENDER, DNP [address] [place] [address] documented as of this encounter Visit Diagnoses Not on filedocumented in this encounter Additional Health Concerns Assessment Noted Time PHQ-9 Depression Total Score: 0 03/24/20 8:20 AM EDT A fall risk assessment has been complete d for the patient 03/24/2025 8:20 AM EDT A Body Mass Index follow-up plan has been documented for the patient 03/24/2025 12:04 PM EDT documented as of this encounter Care Teams Director Of Vendor Management Relationship Specialty Start Date End Date Mp Ibarra DO [address] [place] [address] [address] [place] [address] PCP - General Framing Consultant 03/24/25 documented as of this encounter
--- OUTSIDE RECORDS SUMMARY | 2025-04-26 10:58 | XMS_ITS | Referral Summary ---
Author Organization [employer] ([place], [place], [place], [place]) Address [address] [place] [address] Care Team Providers Care Sleeve Setter Safety Stitch Name Role Phone Mp Ibarra DO Primary Care Provider [phone] Encounters Date Type Department Care Team Description 04/26/2025 Telephone [facility] [address] [place] [phone] Mp Ibarra DO Medication Problem 04/25/2025 12:00 PM EDT Office Visit [facility] [address] [place] [phone] Mp Ibarra DO Crohn's disease of colon with other complication (HCC) (Primary Dx); Dark stools; Nausea; Lower abdominal pain; Essential hypertension; Dyspnea on exertion from Last 3 Months Allergies Active Allergy Reactions Criticality Noted Date [...] 1 capsule by mouth daily. Active omega 2-wxk-oql-fish oil capsule Take 1 capsule (1,000 mg total) by mouth daily. Active ascorbic acid (vitamin C with xiomara hips) 500 MG tablet Take 1 tablet (500 mg total) by mouth daily. Active BETAINE ORAL Take by mouth. Active yjbf-fsbn-puu-yuc -buk-tcrr-cvy [phone] mg tab Take by mouth. Active potassium [...] 12/16/2024 Hyperlipidemia 12/16/2024 History of nephrolithiasis 12/16/2024 Social History Tobacco Use Types Packs/Day Years Used Date Smoking Tobacco: Never Assessed [facility] - Mental Health Answer Date Recorde [...] Description 05/10/2025 9:45 AM EDT Office Visit [facility] [address] [place] [address] [place] [phone] Mp Ibarra DO [address] [place] [address] Rd, [address] [place] [address] 07/19/2025 10:30 AM EST Office Visit [facility] [address] [facility] [address] [place] [address] Mp Ibarra DO [address] [place] [address], [address] [place] [address] Procedures Procedure Name Priority Date/Time Associated Diagnosis [...] - 12/17/2024 5:06 AM EDT Performed at: - [facility] [id number] Optometric Aide: Neptali Escobar PhD, Phone: [phone] us Mp Ibarra DO LAB BLOOD ORDERABLES Final Resul t [facility] from Last 3 Months or Most Recently Relevant to Health Maintenance Insurance MEDICARE PART A B BLUE CROSS/BLUE SHIELD Care Teams Sleeve Setter Safety Stitch Relationship Specialty Start Date End Date Mp Ibarra DO [address], [address] [address] PCP - General Family Medicine 12/16/24
--- OUTSIDE RECORDS SUMMARY | 2025-04-26 10:58 | XMS_ITS | Clinical Summary ---
Author Organization [facility] Address [address] [place] [address] Care Team Providers Care Drill Punch Operator Name Role Phone Unavailable Primary Care Provider Unavailabl e Source Comments This information has been disclosed to you from confidential records protectedfrom disclosure by state law. You shall make no further disclosure of thisinformation without the specific, written, and informed release of theindividual to whom it pertains, or as otherwise permitted by law. A generalauthorization for the release of medical or other information is not sufficientfor the purposes of therelease of HIV test results or diagnoses. [id number] Social History Tobacco Use Types Packs/Day Years Used Date Smoking Tobacco: Never Assessed Sex and Gender Information Value Date Recorded Sex Assigned at Not on file Legal Sex Male 12:34 PM EDT Gender Identity Not on file Sexual Orientation Not on file Plan of Treatment Not on file Insurance [facility]
--- OUTSIDE RECORDS SUMMARY | 2025-04-26 10:58 | XMS_ITS | Encounter Summary ---
Author Organization Healthcare Address [address] [place] [address] Care Team Providers Care Cake Cutter Machine Name Role Phone Mp Ibarra DO Primary Care Provider [phone] Encounter Details Date Type Department Care Team (Latest Contact Info) Description 03/24/2025 Travel Social History Tobacco Use Types Packs/Day Years [...] on file documented as of this encounter Functional Status * Over the past 2 weeks, how often have you been bothered by any of the following problems? Question Answer Date of Assessment Author Little interest or pleasure in doing things Not at all 03/24/2025 8:20 AM Reilly Davison Feeling down, depressed, or hopeless Not at all 03/24/2025 8:20 AM Reilly Davison Patient Health Questionnaire -2 Score 0 03/24/2025 8:20 AM Reilly Davison * Question Answer Date of Assessment Author Trouble falling or staying asleep, or sleeping too much Not at all 03/24/2025 8:20 AM Reilly Davison Feeling tired or having desiree le energy Not at all 03/24/2025 8:20 AM Reilly Davison Poor appetite or overeating Not at all 03/24/2025 8: 20 AM Reilly Davison Feeling bad about yourself - or that you are a failure or have let yourself or your family down Not at all 03/24/2025 8:20 AM EDT Reilly Thomas Trouble concentrating on thi ngs, such as [...] Reilly Davison documented as of this encounter Plan of Treatment Upcoming Encounters Date Type Department Care Team (Late st Contact Info) Description 06/08/2025 10:20 AM EST Office Visit [facility] Sleep Disorder Center [address] [place] [address] Gale Amezcua MD [address] [facility] [address] [place] [address] 06/22/2025 1:10 PM EST Office Visit [facility] [address] [place] [address] Jinny Hagen, SALES OFFICE MANAGER, DNP [address] [facility] [address] [place] [address] documented as of this encounter [...] documented as of this encounter Care Teams Cake Cutter Machine Relationship Specialty Start Date End Date Mp Ibarra DO [address] [place] [address] PCP - General Site Acquisition Specialist 03/24/25 documented as of this encounter
--- OUTSIDE RECORDS SUMMARY | 2025-04-26 10:58 | XMS_ITS | Clinical Summary ---
Author Organization [facility] Address [address] [place] [address] Care Team Providers Care Webmaster Name Role Phone Mp Ibarra DO Primary Care Provider [phone] Allergies Active Allergy Reactions Criticality Noted Date Comments Amoxicillin Nausea Low 04/18/2020 Amoxicillin-Pot Clavulanate Nausea 02/03/20 21 Doxycycline Hives,Nausea Medium 03/28/2015 Medications potassium chloride CR (Klor-Con) 10 MEQ ER tablet Take 1 tablet (10 mEq) by mouth every other day. Active Probiotic Product (PROBIOTIC PO) Take 1 capsule by mouth 1 (one) time each day. 25 billion CFU 9 Active zinc sulfate (Zincate) 220 (50 Zn) MG capsule Take 1 capsule (220 mg) by mouth 1 (one) time each day. Active rivaroxaban (Xarelto) 20 MG tablet Take 1 tablet (20 mg) by mouth 1 (one) time each day. Active aspirin 81 MG EC tablet Take 1 tablet (81 mg) by mouth 1 (one) time each day. Active Digestive Enzymes (BETAINE HCL PO) Take 1 capsule by mouth 1 (one) time each day. Active cholecalciferol (D3-5) 5,000 Units tablet Take 1 tablet (5,000 Units) by mouth 1 (one) time each day. Active POTASSIUM CITRATE PO Take 1 capsule by mouth every other day. Alternate days with potassium chloride 10 mEq. Active Skyrizi 360 MG/2.4ML solution cartridge Inject 260 mg under the skin. Every 8 weeks 3 Active Cobalamin Combinations (B-12 + FOLIC ACID PO) Take 1 capsule by mouth 1 (one) time each day. Active omeprazole (PriLOSEC) [address] capsule Take 1 capsule (20 mg) by mouth 1 (one) time each day. 3 Active ascorbic acid (vitamin C with xiomara hips) 500 MG tablet Take 1 tablet (500 mg) by mouth 1 (one) time each day. Active metoprolol tartrate (Lopressor) 50 MG tablet Take 1 tablet (50 mg) by mouth 1 (one) time each day. Active rivaroxaban (Xarelto) 10 MG tablet Take 1 tablet (10 mg) by mouth 1 (one) time each day with breakfast for 3 days. Resume home dose on Friday 2 tablet 4 Active Additional Information Patient not taking.Reported on 03/24/2025 traMADol (Ultram) 50 MG tablet Take 1 tablet (50 mg) by mouth every 8 (eight) hours if needed for moderate pain. 30 tablet 4 Active Additional Information Patient not taking.Reported on 03/24/2025 rosuvastatin (Crestor) 20 MG tablet 4 Active diclofenac (Voltaren) 1 % topical gel Place on the skin 2 (two) times a day. Apply as directed to shoulder joint for pain upwards of twice daily. 100 g 4 Active ferrous sulfate 324 (65 Fe) MG EC tablet Take 1 tablet by mouth 2 times a day with meals. Active coenzyme Q-10 100 MG capsule Take 1 capsule by mouth 1 time each day. Active omega-3 (Fish Oil) 1000 MG capsule Take 1 capsule by mouth 1 time each day. Active Methionine-Inos- Choline-Lcarn (TOQ-R-FUPOXUNTD IJ) Take 500 mg by mouth every morning. Active Berberine Chloride 500 MG capsule Take by mouth. Activ e lysine 500 MG tablet Take by mouth daily. Active Pomegranate 250 MG capsule Take by mouth. Acti ve tamsulosin (Flomax) 0.4 MG 24 hr capsule Take 1 capsule by mouth 1 time each day with dinner. 90 capsule 3 5 03/24/20 26 Active trospium (Sanctura) 20 MG tablet TAKE 1 TABLET BY MOUTH 2 TIMES A DAY 180 tablet 5 Active Active Problems Problem Noted Date Diagnosed Date Altered bowel function 03/04/2024 Incontinence of feces with fecal urgency 024 Iron deficiency anemia 03/04/2024 Rectal pain 03/04/2024 Kidney stones 03/04/2024 Conjunctivitis 12/14/2023 Arthritis of hip 11/18/2023 Osteoarthritis of left hip, unspecified osteoart hritis type 11/17/2023 Arthritis of left hip 11/17/2023 Hip arthritis 09/09/2023 Primary osteoarthritis of left hip 01/07/2023 Partial small bowel obstruction 10/23/2022 Leucocytosis 10/23/2022 S/P patent foramen ovale closure 10/23/2022 Crohn's disease of small intestine with other co mplication 04/23/2022 Spondylolisthesis, lumbar region 03/09/2021 Enlarged prostate with lower urinary tract sympt oms (LUTS) 07/18/2020 Nephrolithiasis 01/20/2019 Crohn's disease 01/01/2019 Dysfunction of both eustachian tubes 07/31/2018 Degeneration of lumbar or lumbosacral interverte bral disc 05/22/2018 Lumbar stenosis with neurogenic claudication Functional diarrhea 04/04/2016 Transient cerebral ischemia 02/20/2016 Transient visual loss 02/20/2016 Overview (03/04/2024): From Automated Load;Provider: Fabricio Tao;Status: Active Transient ischemic attack 02/20/2016 Overview (03/04/2024): From Automated Load;Provider: Fabricio Tao;Status: Active Intestinal obstruction due t o Crohn's disease of small intestine 09/26/2015 Allergic rhinitis 07/18/2015 Spondylosis of lumbar region without myelopathy or radiculopathy 05/08/2015 SI (sacroiliac) pain 03/28/2015 Right leg pain 03/28/2015 Spondylolisthesis 03/28/2015 Mechanical back pain 03/27/2015 Crohn's disease of small intestine 04/04/1991 Resolved Problems Problem Noted Date Diagnosed Date Resolved Date Diarrhea 03/04/2024 04/24/2025 Physical deconditioning 04/17/202304/05 Bilateral impacted cerumen 07/18/2015 0 04/24/2025 Overview (03/04/2024): From Automated Load;Provider: Indira Florian;Status: Active Encounters Date Type Department Care Team Description 03/25/2025 Refill [facility] [address] [place] [id number] Jabier Littlejohn MD 03/24/2025 9:30 AM EDT Office Visit [facility] [address] [place] [phone] Jinny Hagen, SURVEY ENGINEER, DNP Lower urinary tract symptoms (LUTS) (Primary Dx); Nocturia 03/24/2025 Travel from Last 3 Months Immunizations Immunization Administration Dates Next Due Hep A, Adult 12/11/2018,06/11/2018 Influenza, injectable, quadrivalent, preservativ e free 06/11/2018 [place] COVID-19 Vaccine (Purple Cap) 12 + 11/17/2020,10/25/2020 Family History Medical History Relation Name Comments Stroke Father Aneesh Pressley Stroke Mother Melany Pressley Other cancer Other Cancer Sister Olivia Pressley Anesthesia problems Neg Hx Malig Hyperthermia Neg Hx Relation Name Status Comments Father Aneesh Pressley Mother Melany Pressley Other Sister Olivia Pressley Social History Tobacco Use [...] on file Sexual Orientation Not on file Last Filed [...] Mass Index 28.05 03/24/2025 8:24 AM EDT Plan of Treatment Upcoming Encounters Date Type Department Care Team (Late st Contact Info) Description 06/08/2025 10:20 AM EST Office Visit [facility] [address] [place] [address] Gale Amezcua MD [address] [facility] [address] [place] [address] 06/22/2025 1:10 PM EST Office Visit [facility] [address] [place] [address] Jinny Hagen, SURVEY ENGINEER, DNP [address] [facility] [address] [place] [address] Health Maintenance Due Date Last Done Comments [facility]-/Child/Adol SDOH Screenings 1956 [facility]- SDOH Screenings 1974 [facility]-Adult SDOH Screenings 1974 CT Colonography 2001 Colonoscopy 2001 FIT-DNA 2001 FIT 2001 FOBT 2001 Sigmoidoscopy 2001 [facility]-Colorectal Cancer Screening 2001 [facility]-RSV Vaccine: 60+ Years or (1 - Risk 60-74 years 1-dose series) 2016 [id number]-85 Vaccine (3 - Pfizer risk series) 12/15/2020 11/17/2020, 10/25/2020 [facility]-Influenza Vaccine (#1) 2025 06/11/2018 [facility]-Medicare Annual Wellness (AWV) 01/20/2026 01/20/2025 [facility]-Depression Screening 03/24/2026 025, 03/24/2025, 07/19/2021 [facility]-DTaP,Tdap,and Td Vaccines (2 - Td or Tdap) 01/20/2035 01/20/2025 [facility]-Hepatitis A Vaccines Aged Out 12/11/2018, 03/2018 No longer eligible based on patient's age to complete this topic [facility]-Hepatitis C Screening Completed 2023, 04/22/2022, 08/06/2018 [facility]-Pneumococcal Vaccine: 50+ Years Completed 02/03/2025 [facility]-Zoster Vaccines Completed 03/22/2025, [facility]-Obesity Intervention Completed 025, 09/02/2024, 05/06/2024, Additional history exists HPV Vaccines Aged Out No longer eligi ble based on patient's age to complete this topic [facility]-HIB Vaccines Aged Out No longer e ligible based on patient's age to complete this topic [facility]-IPV Vaccines Aged Out No longer e ligible based on patient's age to complete this topic [facility]-Rotavirus Vaccines Aged Out No lo nger eligible based on patient's age to complete this topic Medical Devices Implanted Type Area Assisted Living Associate Device Identifier Shelf Expiration Date Model / Serial / Lot Spinal Cord Stimulator Spinal Cord Stimulator Bilater al: Back Chg Screw Ref Spher Head 25mm - [id number] Implanted:Qty : 1 on 11/17/2023 by Willy Archuleta MD at [facility] Left: Hip [id number] 04/26/2033 [id number] / / [id number] Chg Shell R3 3 Hole Acet 60mm - [id number] Implanted:Qty : 1 on 11/17/2023 by Willy Archuleta MD at [facility] Left: Hip [id number] 08/08/2033 [id number] / / [id number] Liner Or3o Dual Mbility 46 60 - [id number] Implanted:Qty : 1 on 11/17/2023 by Willy Archuleta MD at [facility] Left: Hip [id number] 05/05/2033 [id number] / / [id number] Chg Screw Ref Spher Head 35mm - [id number] Implanted:Qty : 1 on 11/17/2023 by Willy Archuleta MD at [facility] Left: Hip [employer]-[id number] 04/07/2033 [id number] / / [id number] Chg Head Oxinium Fem 07/17 28m - [id number] Implanted:Qty : 1 on 11/17/2023 by Willy Archuleta MD at [facility] Left: Hip [employer]-[id number] 07/13/2033 [id number] / / [id number] Polarstem Cementless Tiha 4 - [id number] Implanted:Qty : 1 on 11/17/2023 by Willy Archuleta MD at [facility] Left: Hip [employer]-[id number] 05/15/2030 [id number] / / [id number] Liner Or3o Dual Mbility Xlpe 28 46 - [id number] Implanted:Qty : 1 on 11/17/2023 by Willy Archuleta MD at [facility] Left: Hip [employer]-[id number] 08/22/2032 [id number] / / [id number] Procedures Procedure Name Priority Date/Time Associated Diagnosis Comments POC US BLADDER SCAN FOR VOLUME Routine 03/24/2025 8:34 AM EDT Lower urinary tract symptoms (LUTS) PROSTATE CANCER SCREEN, SERUM Routine 03/24/2025 8:06 AM EDT Screening for prostate cancer HEPATITIS C ANTIBODY - ED W/REFLEX TO HCV QUANT PCR STAT 01/20/2024 10:05 PM EDT from Last 3 Months or Most Recently Relevant to Health Maintenance Results * POC US Bladder Volume (03/24/2025 8:34 AM EDT) Urine, Volume 0 mL IMAGING Anatomical Region Laterality Modality Other us Jinny Hagen SURVEY ENGINEER, DNP IMG POINT OF CARE ULTRA SOUND Final Result * PSA Screen (03/24/2025 8:06 AM EDT) Pathologist [facility] Prostate Cancer Screen, Serum 1.77 0.00 - 4.50 ng/mL 03/24/2025 10:16 AM EDT [facility] Blood Venous blood specimen / Unknown Venipuncture / Unknown 03/24/2025 8:06 AM EDT 03/24/2025 8:06 AM EDT Narrative [facility] - 03/24/2025 10:16 AM EDT Performed by [facility] electrochemiluminescent immunoassay which is standardized against the PSA Heber Reference Standard (WHO 96/). Results obtained with different test methods or kits cannot be used interchangeably. us Jabier Littlejohn MD LAB BLOOD ORDERABLES Final Resu lt Performing Organization Address City/[facility]/ZIP Co de Phone Number [facility] [address] [place] [address] * Hepatitis C Antibody - ED (01/20/2024 10:05 PM EDT) Pathologist [facility] Hepatitis C Antibody Negative Negative 01/20/2024 10:54 PM EDT [facility] Blood Venous blood specimen / Unknown Venipuncture / Unknown 01/20/2024 10:05 PM EDT 01/20/2024 10:14 PM EDT Paul Valencia MD LAB BLOOD ORDERABLES Final Res ult Performing Organization Address City/[facility]/ZIP Co de Phone Number [facility] [address] [place] [address] from Last 3 Months or Most Recently Relevant to Health Maintenance [place] [address] ANTHEM Advance Directives Documents on File Type Date Recorded Patient Facility Mechanic Expl anation Advance Directives and Livin g Will 11/19/2023 10:49 AM Power of Exhaust Tender 11/19/2023 9:45 AM * Full Code (Latest Code Status on File) Date Activated Date Inactivated Comments 11/17/2023 7:32 AM 11/18/2023 5:09 PM Question Answer Comments Patient has decision-making capacity? Yes * Full Code Date Activated Date Inactivated Comments 10/23/2022 1:21 AM 10/23/2022 6:54 PM Question Answer Comments Patient has decision-making capacity? Yes * Full Code Date Activated Date Inactivated Comments 04/23/2022 1:09 AM 04/24/2022 5:37 PM Question Answer Comments Patient has decision-making capacity? Yes Care Teams Webmaster Relationship Specialty Start Date End Date Mp Ibarra DO [address] [place] [address] PCP - General Firer Locomotive 03/24/25
--- OUTSIDE RECORDS SUMMARY | 2025-04-26 10:58 | XMS_ITS | Encounter Summary ---
Author Organization [email or web address] ([place], [place], [place], [place]) Address [address] [place] [address] Care Team Providers Care Payroll Associate Name Role Phone Mary Call DO Primary Care Provider [phone] Reason for Visit * Reason Onset Date Comments Medication Problem 04/26/2025 Encounter Details Date Type Department Care Team (Late st Contact Info) Description 04/26/2025 Telephone [facility] [address] [place] [address] [place] [address] Mary Call DO [address] [facility], [address] [address] Medication Problem Social History Tobacco Use Types Packs/Day Years Used Date Smoking Tobacco: Never Assessed [facility] - Mental Health Answer Date Recorde [...] on file documented as of this encounter Miscellaneous Notes * Telephone Encounter - Bot BECKY Cowart - 04/26/2025 10:29 AM EDT FROM: Rajni Farrar TO: [facility] [place] [address] CLINICAL INSURANCE CLAIM AUDITOR 250A [[id number]] SUBJECT: Medication Related Request PROVIDER: MARY CALL [[id number]] DEPARTMENT: [place] [address] [[id number]] ENCOUNTER REASON FOR CALL: MEDICATION PROBLEM [65] ENCOUNTER TYPE: Telephone REASON FOR CALL: Medication question APPOINTMENT OFFERED? No LAST VISIT: 2025-04-25 NEXT VISIT: 2025-05-10 MESSAGE PRIORITY: Routine ADDITIONAL INFORMATION: Aneesh is calling he saw another Dr today and blood pressure reading was 110/68 on his right arm sitting. He like to know does he need to start the blood pressure medication? MEDICATION 1: MEDICATION TYPE: Non controlled RX MEDICATION NAME: Blood Pressure PREFERRED PHARMACY? [facility] [id number] - [facility] [address] [place] [address] [address] [facility] [address] CALLER'S NAME: Aneesh Pressley RELATION TO PATIENT: Self [1] PREFERRED LANGUAGE: Kazakh BEST CALL BACK PHONE NUMBER: Home Phone: ([phone]) WHAT IS THE BEST WAY FOR THE OFFICE TO CONTACT YOU?: OK to leave message on voicemail documented in this encounter Plan of Treatment Upcoming Encounters Date Type Department Care Team (Late st Contact Info) Description 05/10/2025 9:45 AM EDT Office Visit [facility] [address] [place] [address] [place] [address] [place] [address], [address] [address] 07/19/2025 10:30 AM EST Office Visit [facility] [address] [place] [address] [address] [place] [address] Mary Call DO [address] [place] [address] documented as of this encounter Visit Diagnoses Not on filedocumented in this encounter Care Teams Payroll Associate Relationship Specialty Start Date End Date Mary Call DO [address] [place] [address] PCP - General Family Medicine 12/16/24 documented as of this encounter
[2025-04-26 11:53] LABS: Hematocrit 42.9 % (42.0-52.0); Hemoglobin 14.1 g/dL (14.1-18.0); Immature Granulocytes % 0.2 %; Mean Corpuscular HGB Conc 32.9 g/dL (31.8-35.4); Mean Corpuscular Hemoglobin 30.7 pg (27.0-31.2); Mean Corpuscular Volume 93.5 fl (80-94); Nucleated Red Blood Cells % 0 %; Platelet Count 239 K/mm3 (142-424); Red Blood Count 4.59 M/mm3 (4.60-6.20); Red Cell Distribution Width-SD 43.1 fL; White Blood Count 8.7 K/mm3 (4.8-10.8)
[2025-04-26 12:19] LABS: Albumin Level 4.2 g/dl (3.5-5.0); Chloride 102 mmol/L (98-107); Potassium 4.8 mmoL/L (3.5-5.1); Sodium 139 mmol/L (136-145)
[2025-04-26 12:21] LABS: Blood Urea Nitrogen 14 mg/dl (9-20); Creatinine,Serum 0.80 mg/dl (0.66-1.25); Estimated Glomerular Filt Rate 96 ml/min (>60); GFR (African American) 116 ML/MIN (>60)
[2025-04-26 12:22] LABS: Alanine Aminotransferase 23 U/L (12-78); Albumin/Globulin Ratio 1.7 (1.1-1.8); Alkaline Phosphatase 68 U/L (38-126); Anion Gap 11.8 mEq/L (5-15); Aspartate Amino Transferase 36 U/L (17-59); Bilirubin,Total 0.6 mg/dl (0.2-1.3); Calcium 9.4 mg/dl (8.4-10.2); Carbon Dioxide 30 mmol/L (22.0-30.0); Globulin 2.5 g/dL (1.3-3.2); Glucose 90 mg/dl (74-100); Iron 87 ug/dL (49-181); Total Protein,Serum 6.7 g/dl (6.3-8.2)
[2025-04-26 12:36] LABS: 25-OH Vitamin D, Total 70.6 ng/mL (30-100)
[2025-04-26 12:54] LABS: C-Reactive Protein 1.6 mg/L (0-4)
[2025-04-26 12:57] LABS: Ferritin 51.0 ng/ml (17.9-464)
[2025-04-26 13:11] LABS: Vitamin B12 870 pg/mL (239-931)
[2025-04-26 14:40] LABS: Total Iron Binding Capacity 337 ug/dL (261-462)
== END 2025-04-26 23:59 | disposition home or self-care (01) ==
LOC: LAB 10:56
PROVIDERS: Visit Provider Nurse Practitioner Family
DX: K50.018 Crohn's disease of small intestine with other complication (principal)
CPT/HCPCS: 36415; 80053; 82306; 82607; 82728; 83540; 83550; 85025; 85651; 86140